=== PATIENT | male | born 1955 | race Caucasian/White ===

== ENCOUNTER 2016-11-24 10:12 | Emergency (ER) | payer OTHER ==
[~2016-11-24] VITALS: Ht 172.7 cm; Wt 80.7 kg
[2016-11-24] MEDS ORDERED: ALLEGRA ALLERGY60 MG PO (11:21)
[2016-11-24] MEDS ORDERED: MULTIVITAMINS1 EAC7 PO (11:22)
[2016-11-24 11:31] LABS: URINE BILIRUBIN 2+ (Negative); URINE BLOOD TRACE (Negative); URINE GLUCOSE-RANDOM* NEGATIVE (Negative); URINE KETONES NEGATIVE (Negative); URINE LEUKOCYTES-REFLEX NEGATIVE (Negative); URINE PROTEIN (DIPSTICK) 1+ (Negative); URINE SPECIFIC GRAVITY 1.025 (1.003-1.035)
[2016-11-24 11:34] LABS: URINE COLOR DARK YELLOW
[2016-11-24 11:36] LABS: HEMATOCRIT 43.2 % (42.0-52.0); HEMOGLOBIN 14.6 gm/dL (14.0-18.0); MCH 31.3 pg (26.0-34.0); MCHC 33.8 % (28.0-37.0); MCV 92.9 fL (80.0-100.0); PLATELET COUNT 223 thou/uL (150-400); RBC 4.65 mil/uL (4.50-6.00); RDW 13.8 % (10.5-14.5); WBC 10.7 thou/uL (4.0-11.0)
[2016-11-24 11:37] LABS: MANUAL DIFF YES
[2016-11-24 11:47] LABS: CREATININE 0.8 mg/dL (0.6-1.3); POTASSIUM 4.7 mmol/L (3.5-5.1)
[2016-11-24 11:48] LABS: SQUAMOUS 0-3 Few /LPF (0-3)
[2016-11-24 11:49] LABS: CALCIUM OXALATE >10 Many /LPF (None Seen); CASTS None Seen /LPF (None Seen); URINE RBC 0-2 Rare /HPF (0-2); URINE WBC-REFLEX 0-5 Rare /HPF (0-5)
[2016-11-24 11:51] LABS: ICTOTEST (BILI CONFIRMATORY) Positive (Negative)
[2016-11-24 11:53] LABS: ALBUMIN 3.6 g/dL (3.4-5.0); TOTAL BILIRUBIN 5.2 mg/dL (<0.1-1.0); TOTAL PROTEIN 7.5 g/dL (6.4-8.2)
[2016-11-24 12:03] LABS: ABSOLUTE NEUTROPHILS 7.9 thou/uL (1.4-8.2); ATYPICAL LYMPHS 1 %; PLATELET ESTIMATE NORMAL; TOTAL CELL COUNT 100
[2016-11-24 13:34] VITALS: BP 134/85
== END 2016-11-24 13:35 | disposition home or self-care (01) ==
LOC: ER 10:12
PROVIDERS: Emergency Medicine
DX: R74.0 Nonspecific elevation of levels of transaminase and lactic acid dehydrogenase [LDH] (principal); F10.99 Alcohol use, unspecified with unspecified alcohol-induced disorder